=== PATIENT | male | born 1980 | race Caucasian/White ===

== ENCOUNTER → 2019-11-16 | Outpatient (CLI) | payer OTHER ==
[~2019-11-16] MED LIST: KEFLEX500 MG PO
--- NOTE | 2019-11-17 12:00 | TST ---
[place] [address] TREADMILL STRESS TEST Name: MIGUEL ANGEL CATHERINE Room: [facility]#: [id number] Admission: 11/16/19 Attend Phys: Mayelin Leach DO Discharge: Date of : 80 Date of Service: 11/17/19 1039 Report #: [id number] THIS REPORT FOR: cc: Mayelin Leach,Donny Rivas MD [facility] ~ CC: MAYELIN Rivera DATE OF SERVICE: 11/17/2019 TYPE OF PROCEDURE: Exercise stress test. DATE OF PROCEDURE: 11/16/2019. INDICATIONS: Exercise stress test requested in this patient with a history of chest pain. PROCEDURE: The patient was exercised on a treadmill test using a Rakan protocol. RESULTS: The patient had a pretest heart rate of 82, blood pressure of 106/74. The patient is able to exercise for 9 minutes, achieved a peak heart rate of 156, which was 85% of maximum predicted heart rate for the patient's age. Peak blood pressure is 149/84. In recovery, the patient had a heart rate of 103, blood pressure of 119/80. The patient denied chest pains with exercise, was terminated secondary to achieving target heart rate. The patient's resting ECG showed a normal sinus rhythm. With exercise, there were no ischemic ST segment changes noted. There were no arrhythmias noted with exercise. IMPRESSION: 1. Clinical response, nonischemic. 2. ECG response, nonischemic. 3. This exercise stress test is felt to represent a low risk for future cardiac events. <ELECTRONICALLY SIGNED> By: Donny Rodriguez MD, FACC 11/17/19 1200 1039 [id number] Donny Rodriguez MD, FACC /nt
== END ==
LOC: M.CRD 14:38
PROVIDERS: ATTEND Family Medicine
DX: R07.9 Chest pain, unspecified (principal)